=== PATIENT | female | born 1955 | race Caucasian/White ===

== ENCOUNTER → 2018-04-04 | Outpatient (CLI) | payer OTHER | END | disposition home or self-care (01) | LOC: PCVCIMAG 14:54 | DX: I34.0 Nonrheumatic mitral (valve) insufficiency (principal); I34.1 Nonrheumatic mitral (valve) prolapse; R01.1 Cardiac murmur, unspecified; Z87.891 Personal history of nicotine dependence; Z79.899 Other long term (current) drug therapy; Z88.2 Allergy status to sulfonamides | CPT/HCPCS: 80061; 93306 ==

== ENCOUNTER → 2019-04-06 | Outpatient (CLI) | payer OTHER ==
--- NOTE | 2019-04-06 15:25 | PCVCIMAG ---
APPROVED REPORT Study performed: 04/06/2019 13:34:46 EXAM: Comprehensive 2D, Doppler, and color-flow Echocardiogram Patient Location: Echo lab Room #: 2Status: routine BSA: 1.54 HR: 70 bpmBP: 110/64 mmHg Rhythm: NSR Other Information Study Quality: Good Indications Mitral Valve Prolapse Dyspnea 2D Dimensions IVSd: 7.20 (7-11mm)LVOT Diam: 18.76 (18-24mm) LVDd: 44.64 mm PWd: 7.20 (7-11mm)Ascending Ao: 25.28 (22-36mm) LVDs: 23.74 (25-40mm) Left Atrium: 28.84 (27-40mm) Aortic Root: 23.11 mm LV Single Plane 4CH: 68.51 % LV Single Plane 2CH: 62.72 % Biplane EF: 67.1 % Volumes Left Atrial Volume (Systole) Single Plane 4CH: 56.06 mLSingle Plane 2CH: 49.50 mL Biplane LA Volume: 54.00 mLLA ESV Index: 35.00 mL/m2 Aortic Valve AoV Peak Cornelius.: 1.34 m/s AO Peak Gr.: 7.30 mmHgLVOT Max P.86 mmHg LVOT Max V: 0.98 m/s FORD Vmax: 2.02 cm2 Mitral Valve E/A Ratio: 1.8 MV Decel. Time: 236.99 ms MV E Max Cornelius.: 1.32 m/s MV A Cornelius.: 0.73 m/s MV Max Cornelius.: 5.14 m/s MV Mean Cornelius.: 4.07 m/s MR Radius: 0.88 cm MR Als. Cornelius: 0.69 m/s MR Flow: 341.09 mL/s IVRT: 83.04 ms TDI E/Lateral E': 10.15E/Medial E': 14.67 Medial E' Cornelius.: 0.09 m/s Lateral E' Cornelius.: 0.13 m/s Pulmonary Vein P Vein S: 0.79 m/sP Vein A: 0.27 m/s P Vein D: 0.47 m/sP Vein A Dur.: 100.3 msec P Vein S/D Ratio: 1.68 Tricuspid Valve TR Peak Cornelius.: 3.03 m/s TR Peak Gr.: 36.83 mmHg TV Vmax: 0.73 m/sPA Pressure: 44.00 mmHg Left Ventricle The left ventricle is normal size. There is normal LV segmental wall motion. There is normal left ventricular wall thickness. Left ventricular systolic function is normal. The left ventricular ejection fraction is within the normal range. LVEF is 65-70%. The left ventricular diastolic function is normal. Right Ventricle The right ventricle is normal size. The right ventricular systolic function is normal. Atria The left atrium size is normal. The right atrium size is normal. Aortic Valve Aortic valve is trileaflet. Aortic valve leaflets are mildly thickened. Trace aortic regurgitation. There is no aortic valvular stenosis. Mitral Valve The mitral valve is normal in structure. Mitral regurgitation jet is eccentrically directed. Mitral regurgitation jet is posteriorly directed. There is at least moderate mitral regurgitation. No evidence of mitral valve stenosis. Moderate prolapse of the redundant posterior mitral valve leaflet. Tricuspid Valve The tricuspid valve is normal in structure. Mild to moderate tricuspid regurgitation with a PA pressure of 44 mmHg Moderate pulmonary hypertension.. Pulmonic Valve The pulmonary valve is normal in structure. There is no pulmonic valvular regurgitation. Great Vessels The aortic root is normal in size. The ascending aorta is normal in size. Aortic arch is normal in caliber. IVC is normal in size and collapses >50% with inspiration. Pericardium There is no pericardial effusion. There is no pleural effusion. <Conclusion> The left ventricle is normal size. LVEF is 65-70%. The left ventricular diastolic function is normal. The right ventricle is normal size. The left atrium size is normal. Aortic valve is trileaflet. Aortic valve leaflets are mildly thickened. Trace aortic regurgitation. Mitral regurgitation jet is eccentrically directed. Mitral regurgitation jet is posteriorly directed. There is at least moderate mitral regurgitation. Mitral regurgitation jet is eccentrically directed. Mild to moderate tricuspid regurgitation with a PA pressure of 44 mmHg Moderate pulmonary hypertension.. The aortic root is normal in size. Moderate prolapse of the redundant posterior mitral valve leaflet. There is no pericardial effusion.
== END | disposition home or self-care (01) ==
LOC: PCVCIMAG 13:14
PROVIDERS: ATTEND Internal Medicine Cardiovascular Disease
DX: I34.1 Nonrheumatic mitral (valve) prolapse (principal); E78.00 Pure hypercholesterolemia, unspecified; I34.0 Nonrheumatic mitral (valve) insufficiency; Z88.8 Allergy status to other drugs, medicaments and biological substances; Z87.891 Personal history of nicotine dependence
CPT/HCPCS: 93306